=== PATIENT | male | born 1970 | race Caucasian/White ===

== ENCOUNTER 2022-09-22 11:33 | Emergency (ER) | payer BC ==
[2022-09-22] MEDS ORDERED: predniSONE 20 MG TAB ONE (13:22)
== END 2022-09-22 13:27 | disposition home or self-care (01) ==
LOC: BURERS 11:33
DX: B34.9 Viral infection, unspecified (principal); Z87.891 Personal history of nicotine dependence; I10 Essential (primary) hypertension; J45.909 Unspecified asthma, uncomplicated; Z79.899 Other long term (current) drug therapy
CPT/HCPCS: 71046; 87804; J7512